=== PATIENT | female | born 1970 | race African-American/Black ===

== ENCOUNTER 2018-08-09 11:04 | Day surgery (SDC) | payer SELFPAY ==
[2018-08-09] MEDS ORDERED: ceFAZolin SODIUM 1 GM VIAL ONE (12:05)
[2018-08-09] MEDS ORDERED: MIDAZOLAM HCL 2 MG/2 ML SINGLE DOSE VIAL ONE ×2 (12:39)
[2018-08-09] MEDS ORDERED: fentaNYL CITRATE 250 MCG/5 ML VIAL ONE ×2 (12:39→14:33)
[2018-08-09] MEDS ORDERED: LIDOCAINE HCL/PF 2% SDV 5ML VIAL ONE (12:39)
[2018-08-09] MEDS ORDERED: PROPOFOL 20 ML ONE ×2 (12:39→16:58)
[2018-08-09] MEDS ORDERED: EPINEPHrine/PF 1 MG/1 ML (1:1,000) AMPULE ONE (12:47)
[2018-08-09] MEDS ORDERED: ceFAZolin 2 GRAM PREMIX BAG IVPB ONE (13:22)
[2018-08-09] MEDS ORDERED: DEXAMETHASONE SOD PHOSPHATE 4 MG/1 ML VIAL ONE (13:57)
[2018-08-09] MEDS ORDERED: BACITRACIN 15 GM TUBE TOPICAL OINTMENT ONE (14:16)
[2018-08-09] MEDS ORDERED: DESFLURANE GAS 240 ML BOTTLE IH ONE (15:34)
[2018-08-09] MEDS ORDERED: NEOSTIGMINE METHYLSULFATE 0.5 MG/ML - 10 ML MDV ONE (17:01)
[2018-08-09] MEDS ORDERED: oxyCODONE HCL 5 MG TABLET PO PRN ×4 (17:25→18:28)
[2018-08-09] MEDS ORDERED: ONDANSETRON 4 MG/2 ML VIAL IVPUSH PRN (17:25)
[2018-08-09] MEDS ORDERED: LACTATED RINGERS SOLUTION 1,000 ML IV SCH ×2 (17:30→18:30)
[2018-08-09] MEDS ORDERED: ONDANSETRON 4 MG/2 ML VIAL IVPB PRN (18:28)
--- NOTE | 2018-08-09 18:32 | OP ---
Operative Note - Note: Operative Date: 08/09/18 Pre-Operative Diagnosis: bilateral arm lipodystrophy Operation: bilateral arm liposuction and brachioplasty Post-Operative Diagnosis: Same as Pre-op Surgeon: Compa Ron Anesthesia: General Drains & Tubes with Location: FLORENTINO to each arm Operative Report Dictated: Yes
[2018-08-09] MEDS ORDERED: ACETAMINOPHEN 1000 MG/100 ML VIAL (NON FORMULARY) IVPB ONE ×2 (18:35→19:33)
[2018-08-09] MEDS ORDERED: ACETAMINOPHEN INJECTION 100 ML IVPB ONE (19:00)
[2018-08-09 20:22] VITALS: BP 139/87; PULSE 67
[2018-08-09 20:23] VITALS: TEMP 98.7
--- NOTE | 2018-08-10 07:41 | OP ---
DATE OF OPERATION: 08/09/2018 TITLE OF PROCEDURE: Bilateral arm liposuction with bilateral brachioplasty. ATTENDING SURGEON: Compa Ron MD ANESTHESIA: General endotracheal anesthesia. DESCRIPTION OF PROCEDURE: The patient was marked in the holding area, awake and aware of all incisions and resulting scars. The risks, benefits and alternatives to the operation were discussed, as well as its limitations. Understood and agreed to proceed. The patient was given AVELINA hose and sequential compression stockings preoperatively. She was brought to the operating room and placed in the supine position. Position was carefully checked by surgical and anesthesia teams. The patient is then given anesthesia, and a Gao catheter is placed. Ancef 2 g is given preoperatively. She was prepped and draped in the standard surgical fashion. A time-out was called. Patient, procedure, side and sites were verified. At this point, stab wound incisions were made for infiltration of standard wetting solution. Wetting solution consisted of lactated Ringer's with each liter containing 1 ampule of 1:1000 epinephrine. The total amount infiltrated is 800 mL per arm. A full 20 minutes was awaited for the hemostatic effect of the wetting solution. The safe technique of liposuction was then performed with pre-tunneling and post-tunneling with a 4-mm basket cannula, after which MicroAire power-assisted liposuction was then performed circumferentially on the arm. The endpoint is a smooth even contour with the appropriate volume reduction. Lipoaspirates are from the right arm 800 mL and the left arm 750 mL of lipoaspirate. At the completion of this, gloves are changed and the tissues are reprepped with Betadine. The preoperative markings are then refreshed. Attention is first directed toward the right arm, where a posterior incision is made and carried down to the level of the brachial fascia for protection. The skin is tailor-tacked to assure that the preoperatively marked excision pattern is not excessive, and that is assured. The anterior incision is then made, and an elliptical segment of skin and fat is excised along the full length of the pattern. This is tailor-tacked with jonny, and a mirror image procedure is then performed on the contralateral size. Size 10 flat FLORENTINO drains are brought out through distal stab wound incisions and secured with 3-0 nylon drain sutures. The deep John's layer equivalent is closed with a series of interrupted 2-0 Vicryl suture. The skin is then closed with a series of interrupted, buried, deep dermal 3-0 Monocryl suture, followed by running subcuticular 3-0 Monocryl suture. Several 5-0 nylon sutures are used to perfect the closure in the left axilla. Several interrupted jonny are used as well. The liposuction portals are closed with a series of interrupted 5-0 nylon suture. The extremities are pink and viable at the end of the procedure. The esthetic result is excellent. Dressings are applied with Steri-Strips, 4 x 4's gauze, Hypafix tape and bilateral compression sleeves. Upon awakening, the patient is able to follow commands and is neurovascularly intact. She was transferred to Recovery without complication. It should be noted that a Gao catheter had been placed for the operation and was removed at the end of the operation. Izabel SIMMONS/[id number]
== END 2018-08-09 21:16 | disposition home or self-care (01) ==
LOC: JASU-SURG 11:04 → J8W 20:28 → JASU-SURG 21:16
PROVIDERS: ATTEND Plastic Surgery
CPT/HCPCS: 84703; 94760; J0131